=== PATIENT | female | born 1955 | race Two or more races ===

== ENCOUNTER → 2020-05-11 08:32 | Outpatient (CLI) | payer OTHER | END | disposition home or self-care (01) | LOC: LAB 08:32 | PROVIDERS: ATTEND Orthopaedic Surgery | DX: M85.88 Other specified disorders of bone density and structure, other site (principal); E55.9 Vitamin D deficiency, unspecified; E21.2 Other hyperparathyroidism; E88.89 Other specified metabolic disorders; M81.8 Other osteoporosis without current pathological fracture; E56.1 Deficiency of vitamin K ==